=== PATIENT | male | born 1995 | race African-American/Black ===

== ENCOUNTER 2025-08-24 20:15 | Emergency (ER) | payer SELFPAY ==
[~2025-08-24] VITALS: Ht 170.2 cm; Wt 108.0 kg
[2025-08-24 20:21] VITALS: O2SAT 99
[2025-08-24] MEDS: KETOROLAC 15MG/ML VIAL IM ONE (21:11)
[2025-08-24] MEDS ORDERED: LIDO-53 TP (21:19)
[2025-08-24] MEDS ORDERED: NAPR-1176 MT (21:19)
[2025-08-24 21:34] VITALS: BP 159/111; PULSE 92; RESP 15; TEMP 36.8; O2SAT 95
== END 2025-08-24 21:35 | disposition home or self-care (01) ==
LOC: ER 20:15
DX: M25.531 Pain in right wrist (principal); M79.641 Pain in right hand; Z79.1 Long term (current) use of non-steroidal anti-inflammatories (NSAID); W22.8XXA Striking against or struck by other objects, initial encounter; Y93.89 Activity, other specified; Y92.89 Other specified places as the place of occurrence of the external cause; Y99.8 Other external cause status
CPT/HCPCS: 99283; 73130; 96372; J1885